=== PATIENT | male | born 1980 | race Caucasian/White ===

== ENCOUNTER → 2021-10-22 | Day surgery (SDC) | payer OTHER ==
[~2021-10-22] MED LIST: Acetaminophen/HYDROcodone 325-5 MG Tab PO ONE; Dexamethasone 4 MG/ML SDV ONE; Glycopyrrolate 0.2 MG/ML 5 ML MDV ONE; HYDROmorphone 0.5 MG/0.5 ML Syringe IVPUSH ONE; HYDROmorphone 0.5 MG/0.5 ML Syringe ONE; Ketorolac 30 MG/ML SDV IVPUSH ONE; Lactated Ringers 1,000 ML ONE; Neostigmine Methylsulfate 1 MG/ML 5 ML Syringe ONE; Ondansetron 4 MG/2 ML SDV ONE; Propofol 200 MG/20 ML SDV IVPUSH ONE; Propofol 200 MG/20 ML SDV ONE; Rocuronium 50 MG/5 ML Vial ONE; Succinylcholine 200 MG/10 ML MDV ONE; fentaNYL 250 MCG/5 ML SDV ONE
[2021-10-22] MEDS: Bupivacaine 0.5% 50 ML MDV ONE ×4 (20:42→22:25)
== END ==
LOC: JP.ED 18:29 → JP.SDS 20:04
PROVIDERS: ATTEND Specialist
DX: S82.891A Other fracture of right lower leg, initial encounter for closed fracture (principal); S93.422A Sprain of deltoid ligament of left ankle, initial encounter; I10 Essential (primary) hypertension; E66.9 Obesity, unspecified; Z01.812 Encounter for preprocedural laboratory examination; Z20.822 Contact with and (suspected) exposure to COVID-19; X58.XXXA Exposure to other specified factors, initial encounter; Z86.718 Personal history of other venous thrombosis and embolism; Z68.41 Body mass index [BMI] 40.0-44.9, adult
CPT/HCPCS: 27695; 27792; 27810; 36415; 73600-26-RT; 73600-RT; 76000; 80048; 85025; 96374; 96375; 96376; 99284; 99284-25; A9270-GY; C1713; J0330; J1100; J1170; J1885; J2405; J2704; J2710; J3010; J3490; J7120; U0002